=== PATIENT | male | born 1940 | race Hispanic/Latino ===

== ENCOUNTER 2024-07-16 10:17 | Inpatient (IN) | payer MEDICARE ==
[~2024-07-16] VITALS: Ht 165.1 cm; Wt 64.4 kg
[2024-07-16] VITALS (7 sets, daily range): BP systolic 111–123; BP diastolic 59–85; PULSE 80–91; RESP 16–24; TEMP 98.2–98.8; O2SAT 96–100
[~2024-07-16 10:17] MED LIST: AVODART0.5 MG PO; LOVASTATIN40 MG PO; OMEPRAZOLE40 MG PO; TYLENOL325 M2 PO; ULTRAM50 MG PO
[2024-07-16] MEDS: ACETAMINOPHEN 1000 MG/100 ML IV ONE (11:14)
[2024-07-16] MEDS: SODIUM CHLORIDE 0.9% 1000ML 1,000 ML IV STA (11:15)
[2024-07-16 11:25] LABS: INR 1.19; PROTHROMBIN TIME 15.8 seconds (11.9-14.5)
[2024-07-16 11:26] LABS: PARTIAL THROMBOPLASTIN TIME 33.3 seconds (23.8-35.5)
[2024-07-16 11:27] LABS: BASOPHILS % 0.1 % (0.0-1.0); HEMATOCRIT 43.7 % (38.2-49.6); HEMOGLOBIN 14.5 g/dL (14.0-18.0); LYMPHOCYTES # (AUTO) 0.6 (1.0-3.2); MEAN CORPUSCULAR HEMOGLOBIN 30.2 pg (28-32); MEAN CORPUSCULAR HGB CONC 33.2 g/dL (31-35); MONOCYTES # (AUTO) 1.1 (0.2-0.8); MONOCYTES % 6.9 % (4.4-11.3); NEUTROPHILS # (AUTO) 14.2 (2.1-6.9); NEUTROPHILS % 88.6 % (38.7-80.0); PLATELET COUNT 150 x10e3/uL (140-360); RED CELL DISTRIBUTION WIDTH 14.3 % (11.7-14.4); WHITE BLOOD COUNT 16.01 x10e3/uL (4.8-10.8)
[2024-07-16 11:46] LABS: ALBUMIN 3.7 g/dL (3.5-5.0); ALBUMIN/GLOBULIN RATIO 0.8 (0.8-2.0); ANION GAP 17.8 mmol/L (8-16); BILIRUBIN,TOTAL 0.6 mg/dL (0.2-1.2); CREATININE, SERUM 0.84 mg/dL (0.72-1.25); POTASSIUM 3.8 mmol/L (3.5-5.1); TOTAL PROTEIN 8.4 g/dL (6.5-8.1)
[2024-07-16 11:59] LABS: CORONAVIRUS COVID-19 AG NEGATIVE (NEGATIVE); INFLUENZA A AG NEGATIVE (NEGATIVE); INFLUENZA B AG NEGATIVE (NEGATIVE)
[2024-07-16 12:15] LABS: CLARITY,URINE CLEAR (CLEAR); COLOR,URINE YELLOW (YELLOW)
[2024-07-16 12:16] LABS: BILIRUBIN,URINE SMALL (NEGATIVE); GLUCOSE, URINE NEGATIVE (NEGATIVE); KETONES,URINE 2+ (NEGATIVE); LEUKOCYTE ESTERASE ,URINE NEGATIVE (NEGATIVE); NITRITE,URINE NEGATIVE (NEGATIVE); PH,URINE 6 (5 - 7); PROTEIN,URINE DIPSTICK >=300 (NEGATIVE); URINE UROBILINOGEN 1 mg/dL (0.2 - 1)
[2024-07-16 12:17] LABS: BACTERIA,URINE MODERATE /HPF; EPITHELIAL CELLS,URINE FEW /LPF; WBC,URINE (MAN) 0-5 /HPF (0-5)
[2024-07-16 12:23] LABS: BAND NEUTROPHILS % (MANUAL) 3 %; LYMPHOCYTES % (MANUAL) 4 % (19-48); MONOCYTES % (MANUAL) 9 % (3.4-9.0); NEUTROPHILS % (MANUAL) 84 % (40-74)
[2024-07-16 12:24] LABS: PLATELET ESTIMATE ADEQUATE; PLATELET MORPHOLOGY COMMENT NORMAL
[2024-07-16] MEDS: ALBUTEROL/IPRATROPIUM 3 ML NEB NEB ONE (12:39)
[2024-07-16] MEDS ORDERED: ENOXAPARIN SOD INJ 60 MG/0.6 ML SYR SC SCH (13:15)
[2024-07-16] MEDS: SODIUM CHLORIDE 0.9% 1000ML 1,000 ML IV SCH (13:15)
[2024-07-16] MEDS ORDERED: LEVOCETIRIZINE D5 MG PO (14:48)
[2024-07-16] MEDS ORDERED: FLUTICASONE-SA1 EAC1 INH (14:48)
[2024-07-16] MEDS ORDERED: FLOMAX0.4 MG PO (14:48)
[2024-07-16] MEDS ORDERED: VENTOLIN HFA18 GM INH (14:48)
[2024-07-16] MEDS ORDERED: FAMOTIDINE40 MG PO (14:48)
[2024-07-16] MEDS ORDERED: GABAPENTIN100 MG PO (14:48)
[2024-07-16] MEDS ORDERED: ACETAMINOPHEN-1 EAC4 PO (14:48)
[2024-07-16] MEDS ORDERED: SUCRALFATE1 GM PO (14:48)
[2024-07-16] MEDS ORDERED: ALBUTEROL/IPRATROPIUM 3 ML NEB NEB SCH (15:00)
[2024-07-16] MEDS ORDERED: BENZONATATE100 MG PO (15:17)
[2024-07-16] MEDS: DILTIAZEM HCL ER 120 MG CAP PO ONE (15:18)
[2024-07-16] MEDS: ALBUTEROL SULF 0.083% NEB SOLN 3 ML NEB NEB SCH (16:29)
[2024-07-16] MEDS: ENOXAPARIN SOD INJ 60 MG/0.6 ML SYR SC SCH (17:14)
[2024-07-16] MEDS: IPRATROPIUM BROMIDE 0.02% 2.5 ML NEB NEB SCH (19:42)
[2024-07-16] MEDS: BENZONATATE 100 MG CAP PO SCH (20:11)
[2024-07-16] MEDS: Doxycycline IV 100 MG in SODIUM CHLORIDE 0.9% 100 ML IV SCH (20:18)
[2024-07-17] VITALS (10 sets, daily range): BP systolic 117–140; BP diastolic 65–80; PULSE 73–87; RESP 18–20; TEMP 98.2–98.5; O2SAT 92–98
[2024-07-17] MEDS ORDERED: ONDANSETRON HCL INJ 2MG/ML 2ML 2 MG/ML VIAL IV PRN (01:00)
[2024-07-17 05:21] LABS: HEMATOCRIT 40.1 % (38.2-49.6); HEMOGLOBIN 13.2 g/dL (14.0-18.0); LYMPHOCYTES # (AUTO) 0.8 (1.0-3.2); LYMPHOCYTES % 7.6 % (18.0-39.1); MEAN CORPUSCULAR HEMOGLOBIN 30.1 pg (28-32); MEAN CORPUSCULAR HGB CONC 32.9 g/dL (31-35); MEAN CORPUSCULAR VOLUME 91.6 fL (81-99); MONOCYTES % 9.7 % (4.4-11.3); NEUTROPHILS # (AUTO) 8.6 (2.1-6.9); NEUTROPHILS % 82.5 % (38.7-80.0); PLATELET COUNT 127 x10e3/uL (140-360); RED BLOOD COUNT 4.38 x10e6/uL (4.3-5.7); RED CELL DISTRIBUTION WIDTH 14.3 % (11.7-14.4); WHITE BLOOD COUNT 10.41 x10e3/uL (4.8-10.8)
[2024-07-17 06:06] LABS: ALBUMIN/GLOBULIN RATIO 0.7 (0.8-2.0); ANION GAP 14.3 mmol/L (8-16); BILIRUBIN,TOTAL 0.6 mg/dL (0.2-1.2); CALCIUM 8.5 mg/dL (8.4-10.2); CREATININE, SERUM 0.61 mg/dL (0.72-1.25); TOTAL PROTEIN 7.3 g/dL (6.5-8.1)
[2024-07-17 06:10] LABS: POTASSIUM 3.3 mmol/L (3.5-5.1)
[2024-07-17 06:26] LABS: TROPONIN I 0.054 ng/mL (0-0.300)
[2024-07-17] MEDS ORDERED: MELATONIN 3 MG TAB PO PRN (07:00)
[2024-07-17] MEDS ORDERED: LORATADINE 10 MG TAB PO PRN (07:00)
[2024-07-17] MEDS ORDERED: DOCUSATE SODIUM 100 MG CAP PO PRN (07:00)
[2024-07-17] MEDS ORDERED: METOPROLOL TARTRATE INJ 1 MG/ML VIAL IV PRN (07:00)
[2024-07-17] MEDS: ONDANSETRON HCL INJ 2MG/ML 2ML 2 MG/ML VIAL IV PRN (09:16)
[2024-07-17] MEDS: SUCRALFATE 1 GM TAB PO SCH (09:21)
[2024-07-17] MEDS: TAMSULOSIN HCL 0.4 MG CAP PO SCH (09:21)
[2024-07-17] MEDS: POTASSIUM CHLORIDE 20 MEQ TAB CR PO ONE (09:24)
[2024-07-17] MEDS: METOPROLOL TARTRATE 25 MG TAB PO SCH (09:24)
[2024-07-17 13:37] LABS: TROPONIN I 0.043 ng/mL (0-0.300)
[2024-07-17] MEDS: METRONIDAZOLE 500MG/NS 100ML 100 ML IV SCH (18:03)
[2024-07-17] MEDS: SODIUM CHLORIDE 0.9% 250ML 250 ML ONE (19:47)
[2024-07-17] MEDS: FAMOTIDINE 20 MG TAB PO SCH (21:38)
[2024-07-18] VITALS (12 sets, daily range): BP systolic 113–136; BP diastolic 67–98; PULSE 71–95; RESP 16–25; TEMP 97.8–98.5; O2SAT 95–100
[2024-07-18 05:33] LABS: BASOPHILS % 0.1 % (0.0-1.0); HEMATOCRIT 41.6 % (38.2-49.6); HEMOGLOBIN 13.4 g/dL (14.0-18.0); LYMPHOCYTES # (AUTO) 0.7 (1.0-3.2); LYMPHOCYTES % 5.6 % (18.0-39.1); MEAN CORPUSCULAR HEMOGLOBIN 30.3 pg (28-32); MEAN CORPUSCULAR HGB CONC 32.2 g/dL (31-35); MEAN CORPUSCULAR VOLUME 94.1 fL (81-99); MONOCYTES # (AUTO) 1.4 (0.2-0.8); MONOCYTES % 10.8 % (4.4-11.3); NEUTROPHILS # (AUTO) 10.7 (2.1-6.9); NEUTROPHILS % 83.2 % (38.7-80.0); PLATELET COUNT 150 x10e3/uL (140-360); RED BLOOD COUNT 4.42 x10e6/uL (4.3-5.7); RED CELL DISTRIBUTION WIDTH 14.2 % (11.7-14.4); WHITE BLOOD COUNT 12.86 x10e3/uL (4.8-10.8)
[2024-07-18 06:04] LABS: ANION GAP 13.7 mmol/L (8-16); CALCIUM 8.6 mg/dL (8.4-10.2); CREATININE, SERUM 0.66 mg/dL (0.72-1.25); MAGNESIUM 2.2 MG/DL (1.3-2.1); PHOSPHORUS 2.3 MG/DL (2.3-4.7); POTASSIUM 3.7 mmol/L (3.5-5.1)
[2024-07-18] MEDS: PANTOPRAZOLE SOD 40 MG TABEC PO SCH (07:30)
[2024-07-18] MEDS ORDERED: FENTANYL CITRATE/PF 100MCG/2 ML INJ ONE (10:39)
[2024-07-18] MEDS ORDERED: SODIUM CHLORIDE 0.9% 250ML 250 ML ONE (10:39)
[2024-07-18] MEDS: ACETAMINOPHEN 325 MG TAB PO PRN (14:56)
[2024-07-18] MEDS: BENZONATATE 100 MG CAP PO PRN (17:20)
[2024-07-19 00:08] VITALS: PULSE 79; RESP 18; O2SAT 99
[2024-07-19 05:20] LABS: BASOPHILS % 0.1 % (0.0-1.0); HEMATOCRIT 38.6 % (38.2-49.6); HEMOGLOBIN 12.4 g/dL (14.0-18.0); LYMPHOCYTES # (AUTO) 0.6 (1.0-3.2); LYMPHOCYTES % 7.9 % (18.0-39.1); MEAN CORPUSCULAR HGB CONC 32.1 g/dL (31-35); MEAN CORPUSCULAR VOLUME 93.5 fL (81-99); MONOCYTES # (AUTO) 0.9 (0.2-0.8); MONOCYTES % 10.9 % (4.4-11.3); NEUTROPHILS # (AUTO) 6.5 (2.1-6.9); NEUTROPHILS % 80.6 % (38.7-80.0); PLATELET COUNT 142 x10e3/uL (140-360); RED BLOOD COUNT 4.13 x10e6/uL (4.3-5.7); RED CELL DISTRIBUTION WIDTH 13.8 % (11.7-14.4)
[2024-07-19 05:23] VITALS: BP 124/81; PULSE 75; RESP 17; TEMP 98.7; O2SAT 99
[2024-07-19 08:00] VITALS: BP_SYST 124; PULSE 73; RESP 22; TEMP 98.4; O2SAT 100
[2024-07-19 08:12] LABS: ANION GAP 13.1 mmol/L (8-16); CALCIUM 8.4 mg/dL (8.4-10.2); CREATININE, SERUM 0.65 mg/dL (0.72-1.25); MAGNESIUM 2.2 MG/DL (1.3-2.1); PHOSPHORUS 2.6 MG/DL (2.3-4.7)
[2024-07-19 08:13] LABS: POTASSIUM 3.1 mmol/L (3.5-5.1)
[2024-07-19 09:10] VITALS: BP 124/81; PULSE 73; RESP 22; TEMP 98.4; O2SAT 100
[2024-07-19] MEDS: POTASSIUM CHLORIDE 20 MEQ TAB CR PO SCH (09:33)
[2024-07-19] MEDS ORDERED: LOPRESSOR25 MG PO (10:44)
[2024-07-19] MEDS ORDERED: BENZONATATE100 MG PO (10:44)
[2024-07-19] MEDS ORDERED: ELIQUIS5 MG PO (10:44)
[2024-07-19 12:00] VITALS: BP 123/79; PULSE 80; RESP 22; TEMP 97.6; O2SAT 98
[2024-07-19 15:30] VITALS: BP 127/74; PULSE 85; RESP 23; TEMP 98.6; O2SAT 97
[2024-07-19] MEDS ORDERED: APIXABAN 5 MG TABLET PO SCH (21:00)
[2024-07-20 10:47] LABS: MYCOPLASMA PNEUMO IGG 105 U/mL (0-99); MYCOPLASMA PNEUMO IGM <770 U/mL (0-769)
== END 2024-07-19 16:11 | disposition home or self-care (01) | DRG 871 ==
LOC: ER 10:57 → ERHOLD 13:09 → MED/SURG 14:36
PROVIDERS: ADMIT Internal Medicine; ATTEND Internal Medicine
PROC: 3E0333Z Introduction of Anti-inflammatory into Peripheral Vein, Percutaneous Approach (ICD-10-PCS; principal; 2024-07-16)
DX: A41.9 Sepsis, unspecified organism (principal); J18.9 Pneumonia, unspecified organism; J96.21 Acute and chronic respiratory failure with hypoxia; M62.82 Rhabdomyolysis; J47.0 Bronchiectasis with acute lower respiratory infection; J44.1 Chronic obstructive pulmonary disease with (acute) exacerbation; J44.0 Chronic obstructive pulmonary disease with (acute) lower respiratory infection; N39.0 Urinary tract infection, site not specified; J98.11 Atelectasis; Z99.81 Dependence on supplemental oxygen; I49.9 Cardiac arrhythmia, unspecified; J43.9 Emphysema, unspecified; J98.4 Other disorders of lung; Z11.52 Encounter for screening for COVID-19; I48.91 Unspecified atrial fibrillation; K21.9 Gastro-esophageal reflux disease without esophagitis; Z90.49 Acquired absence of other specified parts of digestive tract
CPT/HCPCS: 32408; 36415; 71045; 71250; 74176; 74470; 76700; 77012; 80048; 80053; 81001; 82550; 83605; 83735; 83880; 84100; 84443; 84484; 85025; 85610; 85730; 86738; 87040; 87071; 87086; 87102; 87116; 87205; 87206; 87449; 88112; 88305; 88312; 93005; 93306; 94640; 94667; 94668; 94799; 99284; J0295; J0692; J1650; J2405; J2470; J7030; J7050

== ENCOUNTER 2024-12-26 08:32 | Emergency (ER) | payer MEDICARE ==
[~2024-12-26] VITALS: Ht 165.1 cm; Wt 64.4 kg
[~2024-12-26 08:32] MED LIST changes: +ACETAMINOPHEN-1 EAC4 PO; +BENZONATATE100 MG PO; +ELIQUIS5 MG PO; +FAMOTIDINE40 MG PO; +FLOMAX0.4 MG PO; +FLUTICASONE-SA1 EAC1 INH; +GABAPENTIN100 MG PO; +LEVOCETIRIZINE D5 MG PO; +LOPRESSOR25 MG PO; +SUCRALFATE1 GM PO; +VENTOLIN HFA18 GM INH
[2024-12-26 09:10] VITALS: PULSE 63; RESP 18; TEMP 97.5
[2024-12-26 09:42] LABS: BASOPHILS % 0.2 % (0.0-1.0); EOSINOPHILS % 3.0 % (0.0-6.0); LYMPHOCYTES % 17.6 % (18.0-39.1); MONOCYTES % 14.8 % (4.4-11.3); NEUTROPHILS % 64.2 % (38.7-80.0); RED CELL DISTRIBUTION WIDTH 13.8 % (11.7-14.4)
[2024-12-26 10:06] LABS: EST GLOMERULAR FILTRATION RATE 89.0 ML/MIN (>=60)
[2024-12-26 10:19] LABS: CORONAVIRUS COVID-19 AG NEGATIVE (NEGATIVE)
[2024-12-26 10:32] LABS: INR 1.02
[2024-12-26] MEDS ORDERED: ALBUTEROL/IPRATROPIUM 3 ML NEB ONE (10:50)
[2024-12-26 11:00] VITALS: PULSE 78; RESP 19; O2SAT 100
[2024-12-26] MEDS ORDERED: VENTOLIN HFA18 GM INH (11:05)
[2024-12-26] MEDS ORDERED: DOXYCYCLINE HY100 MG PO (11:05)
[2024-12-26] MEDS ORDERED: PREDNISONE50 MG PO (11:05)
[2024-12-26] MEDS: ALBUTEROL/IPRATROPIUM 3 ML NEB NEB ONE (11:06)
[2024-12-26] MEDS: METHYLPREDNISOLONE SOD SUCC 125 MG/2ML VIAL IV STA (11:53)
[2024-12-26 12:09] VITALS: BP 126/58; PULSE 86; RESP 17; O2SAT 96
== END 2024-12-26 11:46 | disposition home or self-care (01) ==
LOC: ER 09:22
DX: R06.02 Shortness of breath (principal); J44.1 Chronic obstructive pulmonary disease with (acute) exacerbation; R05.9 Cough, unspecified; I10 Essential (primary) hypertension; E78.5 Hyperlipidemia, unspecified; K21.9 Gastro-esophageal reflux disease without esophagitis
CPT/HCPCS: 36415; 71046; 80053; 83880; 84484; 85025; 85610; 85730; 87426; 93005; 94799; 99283; J2919

== ENCOUNTER 2025-02-06 09:18 | Emergency (ER) | payer MEDICARE ==
[~2025-02-06] VITALS: Ht 165.1 cm; Wt 65.8 kg
[~2025-02-06 09:18] MED LIST changes: +DOXYCYCLINE HY100 MG PO; +PREDNISONE50 MG PO
[2025-02-06 09:25] VITALS: TEMP 97.9
[2025-02-06 09:53] VITALS: PULSE 75; RESP 22
[2025-02-06 10:01] LABS: BASOPHILS % 0.3 % (0.0-1.0); EOSINOPHILS % 1.0 % (0.0-6.0); LYMPHOCYTES % 14.8 % (18.0-39.1); MONOCYTES % 13.2 % (4.4-11.3); NEUTROPHILS % 70.4 % (38.7-80.0); RED CELL DISTRIBUTION WIDTH 13.2 % (11.7-14.4)
[2025-02-06 10:28] LABS: EST GLOMERULAR FILTRATION RATE 87.0 ML/MIN (>=60)
[2025-02-06 11:01] VITALS: BP 101/54; PULSE 78; RESP 16; TEMP 97.9; O2SAT 96
== END 2025-02-06 11:03 | disposition home or self-care (01) ==
LOC: ER 09:20
DX: R06.02 Shortness of breath (principal); R07.89 Other chest pain; V44.5XXA Car driver injured in collision with heavy transport vehicle or bus in traffic accident, initial encounter; Y92.481 Parking lot as the place of occurrence of the external cause; I10 Essential (primary) hypertension; J44.9 Chronic obstructive pulmonary disease, unspecified; E78.5 Hyperlipidemia, unspecified; K21.9 Gastro-esophageal reflux disease without esophagitis; R94.31 Abnormal electrocardiogram [ECG] [EKG]
CPT/HCPCS: 36415; 71045; 80053; 83690; 84484; 85025; 93005; 99284